=== PATIENT | female | born 1990 | race Caucasian/White ===

== ENCOUNTER 2025-04-08 11:12 | Outpatient (CLI) | payer BC, SELFPAY ==
[2025-04-08 11:47] VITALS: BP 114/75; PULSE 121; PULSE 123; RESP 16; TEMP 37; O2SAT 96
[2025-04-08 12:04] VITALS: BP 116/73; PULSE 110
[2025-04-08 12:17] LABS: Hematocrit* 34.8 % (33.0-51.0); Hemoglobin* 11.5 gm/dL (12.0-16.0); Mean Corpuscular HGB Conc 33 gm/dL (32-36); Mean Corpuscular Hemoglobin 29 pg (26-34); Mean Corpuscular Volume 89 fL (80-100); Red Blood Count* 3.91 m/uL (4.00-5.20); White Blood Count* 9.58 K/uL (4.50-11.00)
[2025-04-08 12:19] VITALS: BP 109/57; PULSE 110
[2025-04-08 12:26] LABS: Slide Review Reflex No
[2025-04-08 12:34] VITALS: BP 105/55; PULSE 96
[2025-04-08 12:40] LABS: Protein Creatinine Ratio Urine 0.11 (0-0.19)
[2025-04-08 12:49] VITALS: BP 102/59; PULSE 100
[2025-04-08 12:52] LABS: Alanine Aminotransferase* 17 U/L (4-35); Aspartate Amino Transferase* 25 U/L (12-35); Blood Urea Nitrogen* 4 mg/dL (5-24); Creatinine* 0.6 mg/dL (0.5-1.5); Estimated Glomerular Filt Rate 121 ml/min
--- NOTE | 2025-04-08 13:00 | W.PM.NSTNOTE ---
NST Note NST Note NST Note: FHT: moderate variability, baseline 120 bpm, accels present, one variable decels. Rare contractions.
[2025-04-08 13:04] VITALS: BP 108/64; PULSE 94
--- NOTE | 2025-04-08 13:23 | PC.OBNST ---
NST Note NST Note Start: 04/08/25 12:05 Freq: ONCE Status: Active Protocol: Document 04/08/25 12:05 KIMMIE (Rec: 04/08/25 13:23 SOCORRO [id number]) NST Note 3 Para (# of births) 2 EDC 05/03/25 Gestational Age In 36 Weeks & 3 Days Weeks & Days Patient Presented Other with Complaint(s) of Other Complaints r/o Pre-e. Reactive Yes Appropriate for Yes Gestational Age ELIZABETH Hernandez RN Date 04/08/25 Reactive Yes Appropriate for Yes Gestational Age ELIZABETH Perez MD Date 04/08/25 OB NST charge Yes Complete NST Note Yes via Write Note The provider's electronic signature indicates the NST is reactive/appropriate for gestational age. *Note to provider: If an addendum is required, open the patient's chart and click on the note under the Nurse/Allied Health tab.
== END 2025-04-08 13:16 | disposition home or self-care (01) ==
LOC: OB OUT 11:16 → OB 11:44
PROVIDERS: PCP Family Medicine; Visit Provider Student in an Organized Health Care Education/Training Program
DX: O26.893 Other specified pregnancy related conditions, third trimester (principal); R51.9 Headache, unspecified; Z3A.36 36 weeks gestation of pregnancy
CPT/HCPCS: 36415; 59025; 82565; 82570; 84156; 84450; 84460; 84520; 85027; G0463

== ENCOUNTER 2025-04-27 20:26 | Inpatient (IN) | payer BC, SELFPAY ==
[2025-04-27] VITALS (11 sets, daily range): BP systolic 104–128; BP diastolic 53–78; PULSE 62–88; RESP 18; TEMP 36.7–36.9; O2SAT 94–98; BMI 40.4
[2025-04-27] MEDS: LACTATED RINGERS 1000 ML 1,000 ML 1200 ML IV (20:40)
[2025-04-27 21:17] LABS: Hematocrit 37.5 % (33.0-51.0); Hemoglobin* 12.5 gm/dL (12.0-16.0); Immature Granulocytes Pct Auto 0.4 %; Mean Corpuscular HGB Conc 33 gm/dL (32-36); Mean Corpuscular Hemoglobin 29 pg (26-34); Mean Corpuscular Volume 87 fL (80-100); RDW Coefficient of Variation % 16.2 % (11.5-15.5); Red Blood Count 4.30 m/uL (4.00-5.20); White Blood Count* 11.38 K/uL (4.50-11.00)
[2025-04-27 21:18] LABS: Immature Granulocytes Abs Auto 0.00 K/uL (0.00-0.30); Lymphocytes Absolute Auto 2.40 K/uL (0.90-2.90); Slide Review Reflex No
[2025-04-27] MEDS: OXYTOCIN 30 unit/500 ML in NS 30 UNIT/500 ML BAG 300 UNIT IVPB (21:24)
[2025-04-27] MEDS: IBUPROFEN 600 MG TABLET PO (21:48)
--- NOTE | 2025-04-27 21:50 | PM.OBHPLI ---
OB - H&P: HPI Labor/Induction History of Present Illness Date Seen: 04/27/25 Chief Complaint: The patient is a 34 year old 3 para 2 at 39+1 weeks gestation by LMP and c/w 1st trimester US, who presents with painful, regular contractions. Chief complaint: maternity : 3 Para: 2 Narrative: Lorena Fry is a 34 year old at 39+1 weeks by LMP here for painful regular contractions starting this afternoon. Was 3/90/-2 on arrival, and was 3/100/0 station 2 hours later requesting epidural. She progressed to complete and delivered by in house OB provider. History of Present Dating criteria: based on LMP care: good care Ultrasounds: normal 1st trimester US and normal mid trimester US Medical complications: psychiatric (ADHD, PTSD, anxiety, depression. Managed by psychiatry.) Labs Blood type: A (+) positive Rubella: nonimmune RPR/VDLR: nonreactive GBS status: negative HBsAG: negative Meds Home Medications and Allergies Home Medications ?Medication ?Instructions ?Recorded ?Confirmed ?Type aspirin 81 mg capsule 81 mg PO DAILY 04/08/25 04/27/25 History citalopram 40 mg tablet (Celexa) 40 mg PO DAILY 04/08/25 04/27/25 History dextroamphetamine-amphetamine 10 10 mg PO DAILY 04/08/25 04/27/25 History mg tablet (Adderall) Held on 04/27/25. Instructions: hasnt taken in a week dextroamphetamine-amphetamine ER 15 mg PO DAILY 04/08/25 04/27/25 History 15 mg 24hr capsule,extend release (Adderall XR) Held on 04/27/25. Instructions: hasnt taken in a week ergocalciferol (vitamin D2) 1,250 1,250 mcg PO DAILY 04/08/25 04/27/25 History mcg (50,000 unit) capsule (Vitamin D2) famotidine 20 mg tablet (Acid 20 mg PO BID 04/08/25 04/27/25 History Public Speaker (famotidine)) ferrous sulfate 325 mg (65 mg 325 mg PO DAILY 04/08/25 04/27/25 History iron) tablet (Feosol) vit no.95-ferrous 1 tab PO DAILY 04/08/25 04/27/25 History fumarate 28 mg-folic acid 800 mcg tablet () vitamin B complex (Complex B-100 1 tab PO DAILY 04/08/25 04/27/25 History tablet,extended release) Allergies Allergy/AdvReac Type Severity Reaction Status Date / Time Penicillins AdvReac Mild Verified 04/08/25 11:56 OB - H&P: Exam Physical Exam: Vital signs: Temp Pulse BP Pulse Ox 98.4 F 72 116/61 94 04/27/25 17:57 04/27/25 21:42 04/27/25 21:42 04/27/25 17:57 OB - Results Labs Labs: Short CBC 04/27/25 Range/Units 21:05 WBC 11.38 H (4.50-11.00) K/uL Hgb 12.5 (12.0-16.0) gm/dL Hct 37.5 (33.0-51.0) % Plt Count 223 (140-440) K/uL OB - Problem Based A/P Additional Plan (1) Vaginal delivery: Status: Acute Plan Patient delivered prior to provider arrival, see OB note for details. Routine pp cares. Delivery/Labor/Induction Plan Plan: expectant management
--- NOTE | 2025-04-27 22:35 | W.PM.OBVAGDE ---
OB Procedure Vag Delivery Mother Details Mother Details: The patient is a 34 year-old, 3, Para 2, admitted on 04/27/25 at 39.1Days gestation. I happened to be in the unit when I was approach by unit nurses asking me to assist with an imminent vaginal delivery. Upon arrival to room, patient was involuntarily pushing and a small crown was noted. : 3 Para: 2 Weeks Gestation: 39.1 Admission Date: 04/27/25 Additional Details Amniotic Membrane Status: SROM Amniotic Membrane Rupture Date: 04/27/25 Amniotic Membrane Rupture Time: 21:11 Amniotic Membrane Fluid Description: Clear Analgesia/Anesthesia Type: None Waterbirth: No Pitcoin: No Intrapartal Events: Precipitous Labor <3 Hrs Labor Onset: 20:30 Complete: 21:11 Pushin:11 Heart: heart tones during second stage were category 1. Delivery Details Delivery Date: 04/27/25 Delivery Time: 21:21 Gender: Female Viability: Alive; Heart Rate Present Position at Delivery: OA Delivery Details: Delivered via spontaneous vaginal delivery. Infant was placed on maternal abdomen.? Cord was clamped and cut after a 30-60 second delay. Nose and mouth were bulb suctioned.? weight pending. 1 Minute Interval Total Score: 8 5 Minute Interval Total Score: 9 Additional Details Shoulder Dystocia: No Placenta Delivery Time: 21:27 Placental Delivery Description: Spontaneous Procedure Done: only Blood Loss: 150 Laceration: Periurethral - 1st Degree (Not bleeding, not repaired. ) Blood Loss Measurement Type: QBL Bakri Used: No Sponge/Need Count Correct: Yes Cord Vessel Description: 3 Vessels (Marginal insertion. ) Event Summary Status: Mother and infant were stable after delivery. Disposition: floor
[2025-04-28 03:35] VITALS: BP 95/61; PULSE 66; RESP 18; TEMP 36.8; O2SAT 99
[2025-04-28 06:12] LABS: Hemoglobin* 11.3 gm/dL (12.0-16.0)
--- NOTE | 2025-04-28 07:44 | PM.OBPNVD1 ---
OB - PN:Subj Subjective Time Seen by Provider: 07:44 Date Seen: 04/28/25 Interval history: pt seen in routine rounds. No concerns. . Lochia scant. denies pain. Up and ambulating. voiding. tolerating orals. Patient comments OB post-: no complaints, pain well controlled and tolerating diet [place] infant status: OB - PN: Obj Exam Physical Exam: Vital signs: Temp Pulse Resp BP Pulse Ox O2 Del Method 98.2 F 66 18 95/61 99 Room Air 04/28/25 03:35 04/28/25 03:35 04/28/25 03:35 04/28/25 03:35 04/28/25 03:35 04/28/25 03:35 Constitutional: Constitutional: no acute distress and cooperative Routine Abdominal Exam: Fundus: Present firm (at umbilicus) OB - PN: Obj Data Labs Labs: Laboratory Results - last 24 hr 04/27/25 04/27/25 04/28/25 20:56 21:05 05:55 WBC 11.38 H RBC 4.30 Hgb 12.5 11.3 L Hct 37.5 MCV 87 MCH 29 MCHC 33 RDW Coeff of Dustin 16.2 H Plt Count 223 Neut % (Auto) 68.4 Lymph % (Auto) 21.4 [place] % (Auto) 8.7 Eos % (Auto) 0.7 Baso % (Auto) 0.4 Neut # (Auto) 7.80 H Lymph # (Auto) 2.40 [place] # (Auto) 1.00 H Eos # (Auto) 0.10 Baso # (Auto) 0.00 Abs Immat Gran (auto) 0.00 Imm/Tot Granulo (auto) 0.4 Blood Type A Positive Antibody Screen NEGATIVE OB - PN: A/P Delivery Assessment and Plan (1) Vaginal delivery: Problem details: s/p precipitous delivery 04/27/25 at 2121 Status: Acute Assessment and Plan: -continue routine care -likely d/c tomorrow
[2025-04-28 08:57] VITALS: BP 115/78; PULSE 80; RESP 16; TEMP 36.4; O2SAT 96
[2025-04-28] MEDS: DOCUSATE SODIUM 100 MG CAPSULE PO (09:06)
[2025-04-28] MEDS: IBUPROFEN 600 MG TABLET PO (13:12)
[2025-04-28 13:15] VITALS: BP 99/66; PULSE 84; RESP 16; TEMP 36.4; O2SAT 96
[2025-04-28 18:03] VITALS: BP 117/78; PULSE 71; RESP 16; TEMP 36.9; O2SAT 99
[2025-04-28 21:08] VITALS: BP 101/58; PULSE 82; RESP 18; TEMP 36.8; O2SAT 96
[2025-04-29 03:20] VITALS: BP 103/70; PULSE 66; RESP 16; TEMP 36.8; O2SAT 97
[2025-04-29] MEDS: DOCUSATE SODIUM 100 MG CAPSULE PO (08:23)
[2025-04-29] MEDS: ACETAMINOPHEN 500 MG TABLET 1000 MG PO (08:23)
[2025-04-29 08:26] VITALS: BP 104/70; PULSE 88; RESP 16; TEMP 36.8; O2SAT 100
--- NOTE | 2025-04-29 09:30 | PM.OBDSVD1 ---
DS: Providers Provider Date Seen: 04/29/25 Date of admission: 04/27/25 20:26 Primary care physician: Gisela Herr MD Admitting Clinician: Lora Starks MD Attending Physician on discharge: Jaja Marks DO Date of Discharge: 04/29/25 Exam Narrative: Exam Narrative: Gen: alert, pleasant, NAD Resp: breathing comfortably on RA, CTA b/l CV: RRR, no murmurs Abd: fundus firm, nontender Extremities: no pitting edema Const: Vital Signs, click to edit/add: Vital Signs - 24 hr 04/28/25 13:15 04/28/25 18:03 04/28/25 21:08 Temperature 97.6 F 98.4 F 98.2 F Pulse Rate [Pulse Oximeter] 84 71 82 Respiratory Rate 16 16 18 Blood Pressure [Le ft Arm] 99/66 117/78 101/58 L Pulse Oximetry 96 99 96 Oxygen Delivery Me thod Room Air Room Air Room Air 04/29/25 03:20 04/29/25 08:26 Temperature 98.2 F 98.2 F Pulse Rate [Pulse Oximeter] 66 88 Respiratory Rate 16 16 Blood Pressure [Le ft Arm] 103/70 104/70 Pulse Oximetry 97 100 Oxygen Delivery Me thod Room Air Room Air OB - DS: Summary Hospital Course Hospital Course: The patient is a 34 year old G 3 P 3 at 39.1 weeks gestation that was admitted to the Center on 04/27/25 for labor. She had an uncomplicated vaginal delivery. She delivered a viable female infant. First degree perineal tear was not repaired. She is breast feeding. the patient has done well. Describes appropriate lochia, good energy levels, endorses desire to discharge. Peripartum Data Laceration description: Perineal - 1st Degree [place] Infant Gender: Female Infant Discharge Plan: Home Time Spent with Patient Time attestation: Total time spent providing and/or coordinating discharge services: Discharge Plan Discharge Disposition: Home w/ Parent or Adult Date of Admission: 04/27/25 20:26 Attending Provider on Discharge: Jaja Marks Primary Care Provider: Gisela Herr I Anticipated Discharge Date/Time: 04/29/25 09:30 Discharge Medications: New acetaminophen 500 mg Tablet 1,000 mg PO Q6H PRNQty: 40 0RF docusate sodium 100 mg Capsule 100 mg PO DAILY Qty: 30 0RF ibuprofen 600 mg Tablet 600 mg PO Q6H PRNQty: 40 0RF Continued citalopram [Celexa] 40 mg tablet 40 mg PO DAILY dextroamphetamine-amphetamine [Adderall XR] 15 mg capsule,extended release 24hr 15 mg PO DAILY PNV no.95-ferrous fumarate-FA [] 28 mg iron- 800 mcg tablet 1 tab PO DAILY dextroamphetamine-amphetamine [Adderall] 10 mg tablet 10 mg PO DAILY Discontinued ergocalciferol (vitamin D2) [Vitamin D2] 1,250 mcg (50,000 unit) capsule 1,250 mcg PO DAILY Complex B-100 Tablet Extended Release 1 tab PO DAILY aspirin 81 mg capsule 81 mg PO DAILY famotidine [Acid Die Set Up Worker (famotidine)] 20 mg tablet 20 mg PO BID ferrous sulfate [Feosol] 325 mg (65 mg iron) tablet 325 mg PO DAILY Discharge Orders: Discharge Order (Routine); Ordered 04/29/25 Ordered By: Jaja Marks Patient Education: OB Vaginal/Breast Feeding Activity Level: No Restrictions Discharge Diet: Regular Follow Up Appointments: Gisela Herr MD [Primary Care Provider, Obstetrics] Forms: Patient Belongings, [facility] Info Instructions Discharge Comments: Recommend 6 week follow up with primary OB, Dr. Herr.
== END 2025-04-29 10:30 | disposition home or self-care (01) | DRG 560 ==
LOC: OB OUT 20:27 → OB 20:27
PROVIDERS: Obstetrics & Gynecology; Admitting Provider Family Medicine; PCP Family Medicine; Visit Provider Family Medicine
DX: O62.3 Precipitate labor (principal); O70.0 First degree perineal laceration during delivery; O99.344 Other mental disorders complicating childbirth; F41.9 Anxiety disorder, unspecified; F32.A Depression, unspecified; F90.9 Attention-deficit hyperactivity disorder, unspecified type; F43.10 Post-traumatic stress disorder, unspecified; Z3A.39 39 weeks gestation of pregnancy; Z37.0 Single live birth
CPT/HCPCS: 36415; 85018; 85025; 86592; 86850; 86900; 86901; A9270; J7120